=== PATIENT | male | born 1990 | race Two or more races ===

== ENCOUNTER 2025-03-29 16:38 | Emergency (ER) | payer MEDICAID, SELFPAY ==
[2025-03-29 17:09] VITALS: BP 155/99; PULSE 75; RESP 18; TEMP 36.6; O2SAT 99; BMI 28.1
--- NOTE | 2025-03-29 17:24 | XR_ITS ---
Examination: CT lumbar spine, without contrast. 2-D sagittal reconstructions. 2-D coronal reconstructions. 3-D reconstructions. Date and time of exam:March 29, 2025 1749 hours INDICATIONS: Onset lower back pain today CTDI: vol (mGy):19.3 DLP: (mGycm):571 Technique: Multiple 1.25 mm axial sections of the lumbar spine have been obtained. 2-D sagittal and coronal reconstructions have been obtained. 3-D reconstructions have been obtained. Low dose protocols were performed. One or more of the following dose reduction techniques were used; automated exposure control, adjustment of the mA and/or KV according to patient size, use of iterative reconstruction technique. Findings: Satisfactory alignment lumbar vertebral bodies Transitional S1 vertebral body No lumbar vertebral body compression fracture Lumbar pedicles, laminae, transverse and posterior spinous processes intact Sacral segments intact L5-S1 large, 8 mm left paracentral disc bulge displacing the left S1 nerve root IMPRESSION: No acute lumbar fracture L5-S1 large, 8mm, left paracentral disc bulge displacing the left S1 nerve root
--- NOTE | 2025-03-29 17:24 | XR_ITS ---
Examination: CT left hip, without contrast. CT pelvis without intravenous contrast 2-D sagittal reconstructions. 2-D coronal reconstructions. 3-D reconstructions. Date and time of exam:2024, 1749 hours INDICATIONS: Injury to left hip today, left hip pain CTDI: vol (mGy):7.28 DLP: (mGycm):217 Technique: Multiple 1.25 mm axial sections of the pelvis and left hip have been obtained. 2-D sagittal and coronal reconstructions have been obtained. 3-D reconstructions have been obtained. Low dose protocols were performed. One or more of the following dose reduction techniques were used; automated exposure control, adjustment of the mA and/or KV according to patient size, use of iterative reconstruction technique. Findings: Acute nondisplaced fracture greater trochanter left hip No definite extension through the intertrochanteric region Right hip bones of the pelvis is intact No pelvic hematoma IMPRESSION: Acute nondisplaced fracture greater trochanter left hip, no definite extension into the intertrochanteric region However, MRI left hip without contrast follow-up would be preferable in excluding intertrochanteric extension of this left hip fracture
--- NOTE | 2025-03-29 17:24 | PD.EDRME ---
Rapid Medical Screening Exam RME Arrival date/time: 03/29/25 16:38 34-year-old male presents emergency department today for complaints of left buttock pain and left lower back pain Chief Complaint: Extremity Injury, Lower Time Seen by Provider: 03/29/25 16:57 Vital signs: Vital Signs Temperature 98 F 03/29/25 17:09 Pulse Rate 75 03/29/25 17:09 Respiratory Rate 18 03/29/25 17:09 Blood Pressure 155/99 H 03/29/25 17:09 Pulse Oximetry (%) 99 03/29/25 17:09 Oxygen Delivery Method Room Air 03/29/25 17:09
[2025-03-29 20:12] VITALS: BP 143/98; PULSE 73; RESP 17; TEMP 36.2; O2SAT 98
--- NOTE | 2025-03-29 20:15 | PD.EDLOWEX ---
Lower Extremity Injury RME/HPI General Chief Complaint: Extremity Injury, Lower Stated Complaint: PAIN IN L) LEG X 5 MONTHS Time Seen by Provider: 03/29/25 16:57 Source: patient Arrival date/time: 03/29/25 16:38 Mode of arrival: ambulatory Limitations: no limitations RME / HPI RME / HPI Narrative: 34-year-old male is here today with low back pain and left hip pain for 6 months. He denies any trauma, falls, or injury at that time. Has no joint warmth or edema. Denies any fevers or chills. Has no distal sensation changes. Denies any changes of bowel movements or urination. He has no other acute complaints. He states he has no primary care provider. He has not had this evaluated before Related Data Allergies Allergy/AdvReac Type Severity Reaction Status Date / Time No Known Allergies Allergy Verified 03/29/25 16:43 Review of Systems Review of Systems Systems Reviewed: All systems reviewed, normal except as documented ED Exam General Limitations: Present no limitations General appearance: Present alert and in no apparent distress Head Head exam: Present atraumatic Eye Eye exam: Present normal appearance, PERRL and EOMI ENT ENT exam: Present normal exam, normal oropharynx and mucous membranes moist Neck Neck exam: Present normal inspection, full ROM and trachea midline Chest Chest inspection: Present normal inspection and symmetric chest wall rise Respiratory Respiratory exam: Present normal lung sounds bilaterally Cardiovascular Cardiovascular exam: Present regular rate, normal rhythm and normal heart sounds Abdominal Exam Abdominal exam: Present soft and normal bowel sounds Extremities Exam Extremities exam: Present normal inspection and full ROM Back Exam Back exam: Present normal inspection and full ROM Neurological Exam Neurological exam: Present alert, oriented X3 and CN II-XII intact Psychiatric Psychiatric exam: Present normal affect and normal mood Skin Skin exam: Present warm, dry, intact and normal color Course Quality Measures none Orders Category Date Time Status CT hip LT wo con Stat Exams 03/29/25 17:[address] lumbar spine wo con Stat Exams 03/29/25 17:24 Completed Vital Signs Vital signs: Vital Signs Temperature 98 F 03/29/25 17:09 Pulse Rate 75 03/29/25 17:09 Respiratory Rate 18 03/29/25 17:09 Blood Pressure 155/99 H 03/29/25 17:09 Pulse Oximetry (%) 99 03/29/25 17:09 Oxygen Delivery Method Room Air 03/29/25 17:09 Extremity Injury, Lower MDM Narrative MDM Narrative:: Healthy 34-year-old male with no past medical history is here today for ongoing left hip pain and low back pain for 6 months. He denies any acute injury or trauma at that time. He is self ambulating without assistance. He is fully weightbearing. He has no leg shortening. He has no joint warmth, or edema. His vital signs are stable. He has no fevers. He denies any chronic medical history he has not had this evaluated before. Patient data External records reviewed:: None Clinical information provided by:: patient Social determinants that could affect healthcare access:: none Patient has the following chronic illnesses:: n/a How is presenting disease/condition affected by chronic disease/condition?: no chronic disease Evaluation data The following diagnostics were reviewed and interpreted by me:: radiology exam(s) Lab and/or radiology exams considered but not ordered:: n/a Interpretation Summary: I have reviewed the CT as well as the CT report. Radiologist reports a left hip fracture. Medications / Prescriptions Medications or Prescriptions considered but not ordered:: n/a Medication administrations:: n/a Consultations Consultation(s) initiated? (list below): No Diagnosis Extremity Injury, Lower Differential Diagnosis: fracture of hip and other (Joint effusion, septic joint, gout) Most likely diagnosis given after review of the tests above:: Questionable for left hip fracture Admission Indicated Admission indicated?: not indicated Admission Request Was there a request for admission?: No Disposition Plan Disposition Plan: Discharge Discharge Attestation Discharge Attestation: The patient and all family members were given an opportunity to ask questions and understood the discharge instructions. Discharge instructions specifically effects, indications for sooner follow up or return to the emergency department, and the expected course of current diagnosis. Patient condition: Stable Discharge Plan Plan Patient Disposition: HOME (Self Care) Patient condition on transfer: Stable Prescriptions/Referrals Referrals: Marko Pacheco MD [Primary Care Provider] - In 1 week Cristobal Dunbar MD [Physician] - In 1 week Problem List Clinical Impression: Chronic left hip pain Patient/Caregiver Discharge Instructions Education Materials: Understanding Hip Fractures, ED Chronic Pain Additional Instructions: Continue Tylenol and ibuprofen. Contact orthopedics tomorrow to schedule close follow-up appointment. Return here as needed for any worsening or emergent changes. Print Language: Albanian Stand Alone Forms: [employer]., Patient Portal Info Letter
== END 2025-03-29 21:12 | disposition home or self-care (01) ==
PROVIDERS: Emergency Provider Emergency Medicine; PCP Family Medicine
DX: M25.552 Pain in left hip (principal); M54.50 Low back pain, unspecified; G89.29 Other chronic pain
CPT/HCPCS: 72131; 73700; 99284